=== PATIENT | male | born 1955 | race Caucasian/White ===

== ENCOUNTER 2021-12-05 13:41 | Outpatient (REF) | payer MEDICAID, SELFPAY ==
--- NOTE | 2021-12-05 14:36 | MHC.AU.HAS ---
Hearing Aid Evaluation Date of Visit: 12/05/21 Historical Information: Description of Hearing: Mild to moderate sensorineural hearing loss bilaterally Summary: Patient arrives to discuss hearing aids. He has never used hearing aids before. He finds it most difficult to hear in background noise and when people are soft spoken. He also has difficulty hearing the television. Hearing Aid Prescription: Based on the individual?s shared listening needs, communication environments, dexterity, desire for connectivity, and personal preferences, the following prescription for amplification has been made: Right ear: Campaign Coordinator: Phonak Model: Audeo P70-R Battery Size: Rechargeable Color: Silver Commercial Cleaner: 1M Left ear: Campaign Coordinator: Phonak Model: Audeo P70-R Battery Size: Rechargeable Color: Silver Commercial Cleaner: 1M Action Taken/Action Needed: Hearing Instrument Fitting to be scheduled when materials arrive Patient will be going on vacation on December 14. We will try to get him in before then. Primary Diagnosis: H90.3 Bilateral Sensorineural Hearing Loss Signature: Provider: Siddharth Medina, TWIN-A
== END 2021-12-05 13:42 | disposition home or self-care (01) ==
LOC: HO.HAP 13:41
PROVIDERS: Visit Provider Otolaryngology
DX: Z46.1 Encounter for fitting and adjustment of hearing aid (principal); H90.3 Sensorineural hearing loss, bilateral
CPT/HCPCS: 92591

== ENCOUNTER 2022-03-19 09:30 | Outpatient (REF) | payer MEDICAID, SELFPAY ==
--- NOTE | 2022-03-19 10:51 | MHC.AU.HFA ---
Hearing Instrument Fitting- Adult- Binaural Date of Visit: 03/19/22 Hearing Instruments Dispensed: Right Ear: Parks And Recreation Manager: Phonak Model: Audeo P70-R Serial Number: [id number] Repair Warranty: 06/09/2025 Loss and Damage Warranty: 06/09/2025 Battery Size: Rechargeable Color: Silver Practice Office Associate: 1M Type of Dome: Medium Open Type of Wax Guard: CeruShield Left Ear: Parks And Recreation Manager: Phonak Model: Audeo P70-R Serial Number: [id number] Repair Warranty: 06/09/2025 Loss and Damage Warranty: 06/09/2025 Battery Size: Rechargeable Color: Silver Practice Office Associate: 1M Type of Dome: Medium Open Type of Wax Guard: CeruShield Summary of Fitting: Feedback referral manager run. Verifit performed and levels adjusted to better reach targets. Target gain set to 100%. Patient was pleased with the sound of the instruments and did not feel additional adjustments were necessary. Hearing aid care and maintenance were discussed and practiced. Hearing aids were paired to his phone. Recommendations: Patient will call for follow-up if needed. Diagnosis Code(s): Primary Diagnosis: H90.3 Bilateral Sensorineural Hearing Loss Signature: Provider: Siddharth Medina, TWIN-A
== END 2022-03-19 09:31 | disposition home or self-care (01) ==
LOC: HO.HAP 09:30
PROVIDERS: Visit Provider Otolaryngology
DX: Z46.1 Encounter for fitting and adjustment of hearing aid (principal); H90.3 Sensorineural hearing loss, bilateral
CPT/HCPCS: V5011; V5020; V5160; V5261

== ENCOUNTER 2022-12-25 13:33 | Outpatient (REF) | payer MEDICAID, SELFPAY | END 2022-12-25 13:34 | disposition home or self-care (01) | LOC: HO.HAP 13:33 | PROVIDERS: Visit Provider Otolaryngology | DX: Z13.89 Encounter for screening for other disorder (principal) ==

== ENCOUNTER 2023-01-06 14:32 | Outpatient (REF) | payer MEDICAID, SELFPAY | END 2023-01-06 14:33 | disposition home or self-care (01) | LOC: HO.HAP 14:32 | PROVIDERS: Visit Provider Otolaryngology | DX: Z13.89 Encounter for screening for other disorder (principal) ==